=== PATIENT | female | born 1975 | race Caucasian/White ===

== ENCOUNTER 2018-05-18 08:48 | Emergency (ER) | payer MEDICAID ==
[~2018-05-18] VITALS: Ht 170.2 cm; Wt 113.0 kg
[~2018-05-18 08:48] MED LIST: IBUP-1985 PO
[2018-05-18 08:51] VITALS: BP 161/88
[2018-05-18] MEDS ORDERED: DIPH25CA83 PO (09:00)
[2018-05-18] MEDS ORDERED: FAMO-128 PO (09:00)
[2018-05-18] MEDS ORDERED: PRED20TA PO (09:00)
== END 2018-05-18 09:35 | disposition home or self-care (01) ==
LOC: ER 08:49
DX: L50.9 Urticaria, unspecified (principal); Z90.49 Acquired absence of other specified parts of digestive tract; Z88.8 Allergy status to other drugs, medicaments and biological substances
CPT/HCPCS: 99283